=== PATIENT | male | born 1975 | race Caucasian/White ===

== ENCOUNTER 2017-06-15 12:18 | Emergency (ER) | payer MEDICARE, OTHER, MEDICAID ==
[2017-06-15] MEDS ORDERED: EPINEPHRine HCL 1 mg/mL 1mL Amp SUBQ STA (12:44)
--- NOTE | 2017-06-15 12:51 | ED Physician Chart ---
Chief Complaint/HPI - Patient Information Date Seen:: 06/15/17 Time Seen:: 12:40 Chief Complaint:: pruritic rash History of Present Illness:: Patient developed a pruritic rash about 8 hours ago. About 20 hours ago the patient ate a salad and drank 4 beers. He slept in an abandoned building last night. He denies throat swelling or difficulty breathing Allergies:: Allergies Allergy/AdvReac Type Severity Reaction Status Date / Time No Known Allergies Allergy Verified 06/15/17 12:36 Vitals:: Vital Signs - 8 hr 06/15/17 12:30 Temp 98 F HR 85 RR 16 BP 130/58 O2 Sat % 99 Historian:: Patient, EMS Review of Systems - Review of Systems General/Constitutional: No fever, No chills Skin: Skin lesions, Rash Head: No headache Eyes: No loss of vision ENT: No earache, No nasal drainage, No sore throat Neck: No neck pain, No swelling, No stiffness Cardio Vascular: No chest pain, No palpitations Pulmonary: No SOB, No cough, No sputum GI: No nausea, No vomiting, No diarrhea G/U: No dysuria, No frequency, No hematuria Musculoskeletal: No bone or joint pain, No back pain, No muscle pain Endocrine: No polyuria, No polydipsia Psychiatric: Prior psych history Hematopoietic: No bruising, No lymphadenopathy Allergic/Immuno: Urticaria, No angioedema Neurological: No syncope, No focal symptoms Past Medical History - Past Medical History Past Medical History: Other (hepatitis C; bipolar disorder) Social History: Smoker, Alcohol, Other (smokes about one pack of cigarettes per week and drinks 72 ounces of beer per day) Surgical History: None Psychiatricy History: Bipolar Family Medical History - Family Member Mother History Unknown: Yes Physical Exam - Physical Examination General/Constitutional: Well-developed, well-nourished, Alert, No distress Head: Atraumatic Eyes: Lids, conjuctiva normal, PERRL Other Skin comments:: widespread urticareal rash ENMT: External ears, nose nl, TM canals nl, Nasal exam nl, Lips, teeth, gums nl , Oropharynx nl, Tonsils nl Neck: No nuchal rigidity Respiratory: Nl effort/Exclusion, Clear to Auscultation, No Wheeze/Rhonchi/Rales Cardio Vascular: RRR GI: No tenderness/rebounding/guarding, No organomegaly, No hernia, Normal BS's : No CVA tenderness Extremities: Normal digits & nails Neuro/Psych: No focal deficits Misc: No paraspinal tenderness Assessment - Assessment General Assessment: At 1410 patient's rash had faded slightly but the itching is much improved. Patient declines another injection of epinephrine. ED Septic Shock - . Is Septic Shock (SBP<90, OR Lactate>4 mmol\L) present?: No - <6hrs of presentation: Vital Signs: Vital Signs - 8 hr 06/15/17 12:30 Temp 98 F HR 85 RR 16 BP 130/58 O2 Sat % 99 Reassessment (Disposition) - Reassessment Reassessment Condition:: Improved - Diagnosis Diagnosis:: Urticaria - Aftercare/Follow up Instructions Aftercare/Follow-Up Instructions:: Refer to Discharge Instructions Medication Prescribed:: Atarax 25 mg #20 to take 1 4 times a day as necessary - Patient Disposition Discharge/Transfer:: Home Condition at Disposition:: Stable, Improved
[2017-06-15] MEDS ORDERED: EPINEPHRine HCL 1 mg/mL 1mL Amp ONE (12:56)
== END 2017-06-15 14:59 | disposition home or self-care (01) ==
LOC: ER 12:18
DX: L50.9 Urticaria, unspecified (principal); F31.9 Bipolar disorder, unspecified; Z86.19 Personal history of other infectious and parasitic diseases; F17.210 Nicotine dependence, cigarettes, uncomplicated
CPT/HCPCS: 99283; 96372; 87081; J0171; Z7502